=== PATIENT | male | born 1985 | race Caucasian/White ===

== ENCOUNTER 2019-10-03 18:03 | Emergency (ER) | payer MEDICAID ==
[~2019-10-03] VITALS: Ht 185.4 cm; Wt 78.0 kg
[2019-10-03 18:10] VITALS: Ht 185.4 cm; Wt 78.0 kg
[2019-10-03 18:43] LABS: BASOPHIL % 0.4 % (0-2); PLATELET COUNT 296 x10^3mcL (130-400); RED CELL DISTRIBUTION WIDTH 14.1 % (11.5-14.5)
[2019-10-03 18:48] LABS: CARBON DIOXIDE 31.2 mmol/L (21-32); CHLORIDE SERUM 100 mmol/L (98-107); CREATININE SERUM 1.3 mg/dL (0.7-1.3); GFR1 > 60 mL/min; GLUCOSE SERUM 89 mg/dL (74-106); SODIUM SERUM 139 mmol/L (136-145)
[2019-10-03 18:57] LABS: ALBUMIN 4.5 g/dL (3.4-5.0); AST/SGOT 185 U/L (15-37); BILIRUBIN TOTAL 0.6 mg/dL (0.20-1.00); CALCIUM 9.1 mg/dL (8.5-10.1); TOTAL PROTEIN, SERUM 7.9 g/dL (6.4-8.2)
[2019-10-03 18:58] LABS: ALKALINE PHOSPHATASE 83 U/L (46-116); ALT/SGPT 93 U/L (16-63)
[2019-10-03 21:47] VITALS: BP 116/61
== END 2019-10-03 21:47 | disposition home or self-care (01) ==
LOC: ED 18:03
DX: R10.31 Right lower quadrant pain (principal)
CPT/HCPCS: 36415